=== PATIENT | male | born 1965 | race Caucasian/White ===

== ENCOUNTER 2018-02-17 21:32 | Emergency (ER) | payer OTHER ==
[~2018-02-17] VITALS: Ht 177.8 cm; Wt 93.0 kg
[2018-02-17] MEDS ORDERED: FISH OIL 1,001000 M2 PO (21:38)
[2018-02-17] MEDS ORDERED: TUMS PO (21:38)
[2018-02-17 22:57] VITALS: BP 167/101
[2018-02-17] MEDS ORDERED: NORCO 5-325 TA1 EACH PO (23:07)
== END 2018-02-17 23:10 | disposition home or self-care (01) ==
LOC: ER 21:32
DX: M25.512 Pain in left shoulder (principal); W01.0XXA Fall on same level from slipping, tripping and stumbling without subsequent striking against object, initial encounter; Y93.89 Activity, other specified; Y92.096 Garden or yard of other non-institutional residence as the place of occurrence of the external cause; Y99.8 Other external cause status